=== PATIENT | female | born 1955 | race Caucasian/White ===

== ENCOUNTER → 2019-01-09 | Day surgery (SDC) | payer OTHER ==
[~2019-01-09] MED LIST: ASPIRIN81 M1 PO; ATIVAN1 MG PO; BIOTIN PO; BUPIVACAINE 0.25%/EPI 30ML SDV INJ ONE; CALCIUM PO; CEFAZOLIN SOD 1 GM VIAL ONE; DEXAMETHASONE SOD PHOS INJ 4 MG/ML VIAL ONE; DEXAMETHASONE4 MG PO; EPHEDRINE SULFATE INJ 50 MG/10 ML SYR ONE; FENTANYL CITRATE/PF 100MCG/2 ML INJ ONE; FISH OIL PO; FOLIC ACID1 MG PO; HEPARIN SOD (PORCINE) 5,000 UNIT/ML VIAL ONE; HYDROCODONE/APAP 7.5MG-325MG 1 EA TAB ONE; LIDOCAINE HCL 2% LOCAL INJ 5 ML SDV VIAL INJ ONE; LIPITOR10 MG PO; MECLIZINE HCL12.5 MG PO; MIDAZOLAM HCL 2 MG/2 ML VIAL ONE; MULTIVITAMINS1 EAC8 PO; OMEPRAZOLE40 MG PO; ONDANSETRON HCL INJ 2MG/ML 2ML 2 MG/ML VIAL ONE; PEPCID40 MG PO; PLAVIX75 MG PO; PROPOFOL IV EMULSION 10 MG/ML 20 ML VIAL ONE; REQUIP3 MG PO; SEVOFLURANE INHAL SOLN 250 ML PEN BTL ONE; SODIUM CHLORIDE 0.9% 500ML 500 ML ONE; TEMAZEPAM30 MG PO; VITAMIN B12 PO; VITAMIN D PO; VYTORIN 10-801 EACH PO; ZOFRAN4 MG PO
--- OUTSIDE RECORDS SUMMARY | 2019-01-09 09:59 | XMS REPORT ---
Author Author [facility] Address Unknown Phone Unavailable Care Team Providers [place] Maintenance Technician Name Role Phone Unavailable Unavailable Payers Payer Name Policy Type Policy Number Effective Date Expiration Date Problems This patient has no known problems. Allergies, Adverse Reactions, Alerts This patient has no known allergies or adverse reactions. Medications This patient has no known medications. Results Test Description Test Time Test Comments Text Results Atomic Results Result Comments SCR MAMM BILATERAL ABBIE CAD DIGITAL 2018-09-11 10:14:43 - SCR MAMM BILATERAL ABBIE CAD DIGITALBILATERAL DIGITAL SCREENING MAMMOGRAM 3D/2D WITH CAD: 09/10/2018CLINICAL: Asymptomatic. Digital breast tomosynthesis was performed in addition to routine CC and MLO views. Current mammographic images were evaluated by either a [employer] M-Vu or a [employer] ImageChecker CAD (computer aided detection system). Comparison is made to exam dated 04/20/2009 mammogram - [facility]. The tissue of both breasts is predominantly fatty. No suspicious mass, architectural distortion, malignant type calcification, or lymph node abnormality detected. IMPRESSION: NEGATIVEThere is no mammographic evidence of malignancy. Resume annual screening mammography in one year. Jeromy darling/josué:09/11/2018 10:14:43 Voip Technician: Mary POP, [facility]-FWletter sent: BIRADS 1-2 Normal Mammogram BI-RADS: 1 Negative
[2019-01-09 12:00] LABS: BASOPHILS % 0.4 % (0.0-1.0); EOSINOPHILS % 0.9 % (0.0-6.0); HEMATOCRIT 37.4 % (34.2-44.1); HEMOGLOBIN 11.8 g/dL (12.0-16.0); LYMPHOCYTES # (AUTO) 2.5 (1.0-3.2); LYMPHOCYTES % 53.5 % (18.0-39.1); MEAN CORPUSCULAR HEMOGLOBIN 30.6 pg (28-32); MEAN CORPUSCULAR HGB CONC 31.6 g/dL (31-35); MEAN CORPUSCULAR VOLUME 97.1 fL (81-99); MONOCYTES # (AUTO) 0.4 (0.2-0.8); MONOCYTES % 8.5 % (4.4-11.3); NEUTROPHILS # (AUTO) 1.7 (2.1-6.9); NEUTROPHILS % 36.5 % (38.7-80.0); PLATELET COUNT 228 x10e3/uL (140-360); RED BLOOD COUNT 3.85 x10e6/uL (3.6-5.1); RED CELL DISTRIBUTION WIDTH 14.4 % (11.7-14.4)
[2019-01-09 12:16] LABS: ANION GAP 13.2 mmol/L (8-16); BLOOD UREA NITROGEN 12 mg/dL (7-26); BUN/CREATININE RATIO 16 (6-25); CALCIUM 10.3 mg/dL (8.4-10.2); CARBON DIOXIDE 28 mmol/L (22-29); CHLORIDE 103 mmol/L (98-107); CREATININE, SERUM 0.74 mg/dL (0.57-1.11); EST GLOMERULAR FILTRATION RATE > 60 ML/MIN (60-); GLUCOSE 90 mg/dL (74-118); POTASSIUM 3.2 mmol/L (3.5-5.1); SODIUM 141 mmol/L (136-145)
--- NOTE | 2019-01-09 14:22 | Diagnostic Imaging Report ---
EXAM: CHEST 2 VIEWS, PA and lateral DATE: 01/09/2019 Time stamp on exam: 12:04 PM INDICATION: Preoperative COMPARISON: 11/18/2012 FINDINGS: LINES/TUBES: None LUNGS: Focal opacity in the right lower lobe is indeterminant. This was not seen on the prior x-ray. Nodule, mass or infectious process would be in the differential. Follow-up CT scan of the chest with contrast is suggested. PLEURA: No effusions or pneumothorax. HEART AND MEDIASTINUM: Normal size and contour. BONES AND SOFT TISSUES: No acute findings. IMPRESSION: 1. Focal opacity in the right lower lobe as described above. 2. CT scan of the chest recommended for further evaluation. Signed by: Dr. Julio Cesar Daniels DO on 01/09/2019 2:18 PM
[2019-01-09 15:45] VITALS: BP 123/86
--- NOTE | 2019-01-09 22:19 | Operative Report ---
DATE OF PROCEDURE: 01/09/2019 SURGEON: Cj Irvin MD PREOPERATIVE DIAGNOSES: Lung cancer, needing IV access for chemotherapy. POSTOPERATIVE DIAGNOSES: Lung cancer, needing IV access for chemotherapy. OPERATION PERFORMED: Placement of left subclavian venous access port under C-arm guidance. MANAGER PLANT: MICHEAL Brian. ANESTHESIA: General. COMPLICATIONS: None. ESTIMATED BLOOD LOSS: Minimal. DESCRIPTION OF PROCEDURE: With the patient lying in bed in the supine position under good general anesthesia, the left chest and neck were prepped with Betadine solution and draped in the usual manner. The patient was placed in the Trendelenburg position and a standard left subclavian venipuncture was performed without any difficulty. A guidewire was advanced into central venous position. Using the C-arm, the tip of the guidewire was confirmed to be at the level of the superior vena cava and the left lung was fully expanded. The pocket was then created in the left anterior chest to accept the reservoir and the catheter was threaded to the subclavian position and cut to the appropriate length. The reservoir was anchored to the anterior chest wall with interrupted sutures of 2-0 silk and the reservoir and catheter were fully heparinized. The peel-away sheath was then placed over the guidewire. The guidewire was removed and the catheter was threaded through the peel-away sheath. The peel-away sheath was removed and using the C-arm, the tip of the catheter was found to be at the level of the superior vena cava and the left lung was fully expanded. There was good blood return, and the reservoir was fully heparinized and the wounds were then closed in layers. The subcutaneous tissue was approximated with 3-0 and 4-0 Vicryl. The skin was closed with subcuticular 5-0 Vicryl and benzoin Steri-Strips and dressings were applied. The sponge, lap, and needle count was correct. The patient tolerated the procedure well and returned to the recovery room in stable condition. MD NANNETTE RenteriaR/MODL /[id number]
== END | disposition home or self-care (01) ==
LOC: OR 09:55
PROVIDERS: ATTEND Surgery
DX: C34.90 Malignant neoplasm of unspecified part of unspecified bronchus or lung (principal); I10 Essential (primary) hypertension; I73.9 Peripheral vascular disease, unspecified; K21.9 Gastro-esophageal reflux disease without esophagitis; I45.10 Unspecified right bundle-branch block; F41.9 Anxiety disorder, unspecified; Z91.048 Other nonmedicinal substance allergy status; Z79.02 Long term (current) use of antithrombotics/antiplatelets; Z79.82 Long term (current) use of aspirin; Z87.891 Personal history of nicotine dependence
CPT/HCPCS: 36415; 36561; 71046; 77001; 80048; 85025; 93005; C1751; J0690; J1100; J1644; J2001; J2250; J2405; J2704; J7040

== ENCOUNTER 2022-02-22 11:30 | Inpatient (IN) | payer MEDICARE, BC ==
[2022-02-20 13:28] LABS: BASOPHILS % 0.7 % (0.0-1.0); EOSINOPHILS # (AUTO) 0.1 (0.0-0.4); EOSINOPHILS % 2.2 % (0.0-6.0); HEMATOCRIT 33.8 % (34.2-44.1); HEMOGLOBIN 10.3 g/dL (12.0-16.0); LYMPHOCYTES # (AUTO) 2.2 (1.0-3.2); LYMPHOCYTES % 37.5 % (18.0-39.1); MEAN CORPUSCULAR HEMOGLOBIN 31.2 pg (28-32); MEAN CORPUSCULAR HGB CONC 30.5 g/dL (31-35); MEAN CORPUSCULAR VOLUME 102.4 fL (81-99); MONOCYTES # (AUTO) 0.6 (0.2-0.8); MONOCYTES % 9.4 % (4.4-11.3); NEUTROPHILS % 49.9 % (38.7-80.0); PLATELET COUNT 242 x10e3/uL (140-360); RED CELL DISTRIBUTION WIDTH 14.1 % (11.7-14.4)
[2022-02-20 13:54] LABS: ALBUMIN 3.1 g/dL (3.5-5.0); ALBUMIN/GLOBULIN RATIO 0.9 (0.8-2.0); ANION GAP 13.9 mmol/L (8-16); CALCIUM 8.4 mg/dL (8.4-10.2); CREATININE, SERUM 0.79 mg/dL (0.57-1.11); POTASSIUM 4.9 mmol/L (3.5-5.1)
[~2022-02-22] VITALS: Ht 175.3 cm; Wt 93.0 kg
[~2022-02-22 11:30] MED LIST changes: -BUPIVACAINE 0.25%/EPI 30ML SDV INJ ONE; +BYSTOLIC10 MG PO; -CEFAZOLIN SOD 1 GM VIAL ONE; -DEXAMETHASONE SOD PHOS INJ 4 MG/ML VIAL ONE; -EPHEDRINE SULFATE INJ 50 MG/10 ML SYR ONE; -FENTANYL CITRATE/PF 100MCG/2 ML INJ ONE; +FENTANYL1 EAC3 TD; -HEPARIN SOD (PORCINE) 5,000 UNIT/ML VIAL ONE; +HYDROCODON-ACE1 EAC9 PO; -HYDROCODONE/APAP 7.5MG-325MG 1 EA TAB ONE; +IRON 100 PLUS1 EACH PO; -LIDOCAINE HCL 2% LOCAL INJ 5 ML SDV VIAL INJ ONE; -MIDAZOLAM HCL 2 MG/2 ML VIAL ONE; +MYSOLINE50 MG PO; -ONDANSETRON HCL INJ 2MG/ML 2ML 2 MG/ML VIAL ONE; +PROMETHAZINE HC25 M1 PO; -PROPOFOL IV EMULSION 10 MG/ML 20 ML VIAL ONE; -SEVOFLURANE INHAL SOLN 250 ML PEN BTL ONE; -SODIUM CHLORIDE 0.9% 500ML 500 ML ONE
[2022-02-22] MEDS ORDERED: GLYCOPYRROLATE INJ 0.2 MG/ML VIAL ONE (13:33)
[2022-02-22] MEDS ORDERED: LIDOCAINE HCL 2% LOCAL INJ 5 ML SDV VIAL INJ ONE (13:33)
[2022-02-22] MEDS ORDERED: ONDANSETRON HCL INJ 2MG/ML 2ML 2 MG/ML VIAL ONE ×2 (13:33→15:17)
[2022-02-22] MEDS ORDERED: PROPOFOL IV EMULSION 10 MG/ML 20 ML VIAL ONE (13:33)
[2022-02-22] MEDS ORDERED: DEXAMETHASONE SOD PHOS INJ 4 MG/ML SDV ONE (13:33)
[2022-02-22] MEDS ORDERED: ROCURONIUM BROMIDE 10 MG/ML 5ML VIAL IV ONE (13:33)
[2022-02-22] MEDS ORDERED: SEVOFLURANE INHAL SOLN 250 ML PEN BTL ONE (13:33)
[2022-02-22] MEDS ORDERED: POVIDONE IODINE 0.05% 0.05 % ML PO ONE (13:33)
[2022-02-22] MEDS ORDERED: NEOSTIGMINE 1 MG/ML 10ML VIAL ONE (13:33)
[2022-02-22] MEDS ORDERED: FENTANYL CITRATE/PF 100MCG/2 ML INJ ONE ×2 (13:59→15:38)
[2022-02-22] MEDS ORDERED: Morphine 10mg syringe 10 MG/ML INJ ONE (13:59)
[2022-02-22] MEDS ORDERED: BUPIVACAINE 0.25% 30ML SDV ONE (14:43)
[2022-02-22] MEDS: SODIUM CHLORIDE 0.9% 250ML IRRIG IR SCH ×3 (15:15→23:30)
[2022-02-22] MEDS ORDERED: METOCLOPRAMIDE HCL 10 MG/2ML VIAL ONE (15:17)
[2022-02-22] MEDS ORDERED: PROMETHAZINE HCL (IM) 25 MG/ML VIAL IM ONE (15:27)
[2022-02-22 16:05] VITALS: BP 149/88
[2022-02-22 16:21] VITALS: BP 149/88
[2022-02-22] MEDS ORDERED: TIZANIDINE HCL6 MG PO (17:25)
[2022-02-22] MEDS: Morphine 4mg INJECTION 4 MG/ML INJ IV PRN ×2 (17:29→21:32)
[2022-02-22] MEDS: LACTATED RINGER'S 1,000 ML INJ SCH (17:29)
[2022-02-22 17:44] VITALS: BP 149/88
[2022-02-22 20:50] VITALS: BP 153/92
[2022-02-22 21:00] VITALS: BP 153/92
[2022-02-22] MEDS: ONDANSETRON HCL INJ 2MG/ML 2ML 2 MG/ML VIAL IV PRN (21:28)
[2022-02-22 23:59] VITALS: BP 174/87
[2022-02-23] VITALS (7 sets, daily range): BP systolic 119–177; BP diastolic 67–88
[2022-02-23] MEDS: Morphine 4mg INJECTION 4 MG/ML INJ IV PRN ×2 (01:36→05:35)
[2022-02-23] MEDS: LACTATED RINGER'S 1,000 ML INJ SCH ×4 (01:53→21:40)
[2022-02-23] MEDS: ONDANSETRON HCL INJ 2MG/ML 2ML 2 MG/ML VIAL IV PRN ×2 (03:21→13:24)
[2022-02-23] MEDS: SODIUM CHLORIDE 0.9% 250ML IRRIG IR SCH ×4 (03:24→15:28)
[2022-02-23 05:02] LABS: BASOPHILS % 0.1 % (0.0-1.0); HEMATOCRIT 34.9 % (34.2-44.1); LYMPHOCYTES # (AUTO) 1.5 (1.0-3.2); LYMPHOCYTES % 11.3 % (18.0-39.1); MEAN CORPUSCULAR HEMOGLOBIN 31.3 pg (28-32); MEAN CORPUSCULAR HGB CONC 31.5 g/dL (31-35); MEAN CORPUSCULAR VOLUME 99.1 fL (81-99); MONOCYTES # (AUTO) 1.2 (0.2-0.8); MONOCYTES % 8.6 % (4.4-11.3); NEUTROPHILS # (AUTO) 10.7 (2.1-6.9); NEUTROPHILS % 79.7 % (38.7-80.0); PLATELET COUNT 256 x10e3/uL (140-360); RED BLOOD COUNT 3.52 x10e6/uL (3.6-5.1); RED CELL DISTRIBUTION WIDTH 14.1 % (11.7-14.4)
[2022-02-23 05:18] LABS: ANION GAP 16.5 mmol/L (8-16); CALCIUM 8.4 mg/dL (8.4-10.2); CREATININE, SERUM 0.77 mg/dL (0.57-1.11); POTASSIUM 4.5 mmol/L (3.5-5.1)
[2022-02-23] MEDS ORDERED: HYDRALAZINE HCL 20 MG/ML VIAL IV PRN (09:45)
[2022-02-23] MEDS ORDERED: HYDROMORPHONE 1MG/1ML INJ IV ONE (10:30)
[2022-02-23] MEDS: CYANOCOBALAMIN INJ 1,000 MCG/ML VIAL IM SCH (10:40)
[2022-02-23] MEDS: FENTANYL 100 MCG/HR PATCH TD SCH (10:47)
[2022-02-23] MEDS: HYDROMORPHONE 1MG/1ML INJ IV PRN ×4 (13:24→23:59)
[2022-02-23] MEDS ORDERED: ACETAMINOPHEN 1000 MG/100 ML IV PRN (14:45)
[2022-02-23 15:25] LABS: CLARITY,URINE SL CLOUDY (CLEAR); COLOR,URINE YELLOW (YELLOW); KETONES,URINE NEGATIVE (NEGATIVE); LEUKOCYTE ESTERASE ,URINE SMALL (NEGATIVE); NITRITE,URINE NEGATIVE (NEGATIVE); PROTEIN,URINE DIPSTICK NEGATIVE (NEGATIVE); URINE UROBILINOGEN 0.2 mg/dL (0.2 - 1)
[2022-02-23 15:36] LABS: BACTERIA,URINE RARE /HPF
[2022-02-23] MEDS: ENOXAPARIN SOD INJ 40 MG/0.4 ML SYR SC SCH (16:42)
[2022-02-23] MEDS: PROMETHAZINE 12.5MG/ NACL 0.9% 12.5 MG/50 ML BAG IV PRN ×2 (16:44→20:42)
[2022-02-24] VITALS (8 sets, daily range): BP systolic 90–139; BP diastolic 55–84
[2022-02-24 05:01] LABS: BASOPHILS % 0.4 % (0.0-1.0); EOSINOPHILS # (AUTO) 0.1 (0.0-0.4); EOSINOPHILS % 1.1 % (0.0-6.0); HEMATOCRIT 28.1 % (34.2-44.1); HEMOGLOBIN 8.9 g/dL (12.0-16.0); LYMPHOCYTES # (AUTO) 1.3 (1.0-3.2); LYMPHOCYTES % 18.5 % (18.0-39.1); MEAN CORPUSCULAR HEMOGLOBIN 31.3 pg (28-32); MEAN CORPUSCULAR HGB CONC 31.7 g/dL (31-35); MEAN CORPUSCULAR VOLUME 98.9 fL (81-99); MONOCYTES # (AUTO) 0.8 (0.2-0.8); MONOCYTES % 11.1 % (4.4-11.3); NEUTROPHILS # (AUTO) 4.9 (2.1-6.9); NEUTROPHILS % 68.6 % (38.7-80.0); PLATELET COUNT 165 x10e3/uL (140-360); RED BLOOD COUNT 2.84 x10e6/uL (3.6-5.1); RED CELL DISTRIBUTION WIDTH 14.4 % (11.7-14.4)
[2022-02-24 05:21] LABS: ANION GAP 13.5 mmol/L (8-16); CALCIUM 8.1 mg/dL (8.4-10.2); CREATININE, SERUM 0.96 mg/dL (0.57-1.11); POTASSIUM 4.5 mmol/L (3.5-5.1)
[2022-02-24] MEDS: LACTATED RINGER'S 1,000 ML INJ SCH ×3 (05:30→16:16)
[2022-02-24] MEDS: LIDOCAINE 4% PATCH TP SCH (09:00)
[2022-02-24] MEDS: CYANOCOBALAMIN INJ 1,000 MCG/ML VIAL IM SCH (09:00)
[2022-02-24] MEDS: HYDROMORPHONE 1MG/1ML INJ IV PRN ×3 (09:55→20:26)
[2022-02-24] MEDS ORDERED: HYDROCODONE/APAP 10MG-325MG TAB PO PRN (10:15)
[2022-02-24] MEDS ORDERED: ACETAMINOPHEN 1000 MG/100 ML IV PRN (10:15)
[2022-02-24] MEDS: LORAZEPAM 1 MG TAB PO SCH ×2 (16:00→20:26)
[2022-02-24] MEDS: MECLIZINE HCL 12.5 MG TAB PO PRN (16:20)
[2022-02-24] MEDS: ENOXAPARIN SOD INJ 40 MG/0.4 ML SYR SC SCH (17:00)
[2022-02-25] VITALS (8 sets, daily range): BP systolic 56–143; BP diastolic 39–79
[2022-02-25] MEDS: MECLIZINE HCL 12.5 MG TAB PO PRN ×2 (04:33→12:31)
[2022-02-25] MEDS: LACTATED RINGER'S 1,000 ML INJ SCH (04:54)
[2022-02-25] MEDS: HYDROMORPHONE 1MG/1ML INJ IV PRN ×5 (06:46→21:15)
[2022-02-25] MEDS: LIDOCAINE 4% PATCH TP SCH (08:38)
[2022-02-25] MEDS: LORAZEPAM 1 MG TAB PO SCH ×3 (08:39→21:14)
[2022-02-25] MEDS: CYANOCOBALAMIN INJ 1,000 MCG/ML VIAL IM SCH (08:39)
[2022-02-25] MEDS ORDERED: ACETAMINOPHEN 1000 MG/100 ML IV PRN (10:00)
[2022-02-25] MEDS: IRON SUCROSE 100 MG in SODIUM CHLORIDE 0.9% 100 ML IV SCH (11:30)
[2022-02-25] MEDS: ONDANSETRON HCL INJ 2MG/ML 2ML 2 MG/ML VIAL IV PRN (21:14)
[2022-02-26] VITALS: BP_SYST 100; BP_SYST 117; BP_DIAS 73; BP_DIAS 85
[2022-02-26] MEDS: HYDROMORPHONE 1MG/1ML INJ IV PRN ×3 (02:53→09:45)
[2022-02-26] MEDS: ONDANSETRON HCL INJ 2MG/ML 2ML 2 MG/ML VIAL IV PRN ×2 (02:53→06:24)
[2022-02-26 04:00] VITALS: BP 137/82
[2022-02-26 05:55] LABS: BASOPHILS % 0.6 % (0.0-1.0); EOSINOPHILS # (AUTO) 0.2 (0.0-0.4); EOSINOPHILS % 6.1 % (0.0-6.0); HEMATOCRIT 26.6 % (34.2-44.1); HEMOGLOBIN 8.3 g/dL (12.0-16.0); LYMPHOCYTES # (AUTO) 0.7 (1.0-3.2); MEAN CORPUSCULAR HEMOGLOBIN 31.3 pg (28-32); MEAN CORPUSCULAR HGB CONC 31.2 g/dL (31-35); MEAN CORPUSCULAR VOLUME 100.4 fL (81-99); MONOCYTES # (AUTO) 0.5 (0.2-0.8); MONOCYTES % 14.9 % (4.4-11.3); NEUTROPHILS # (AUTO) 1.8 (2.1-6.9); NEUTROPHILS % 57.1 % (38.7-80.0); PLATELET COUNT 144 x10e3/uL (140-360); RED BLOOD COUNT 2.65 x10e6/uL (3.6-5.1); RED CELL DISTRIBUTION WIDTH 13.9 % (11.7-14.4)
[2022-02-26 08:00] VITALS: BP 137/82
[2022-02-26 08:24] VITALS: BP 139/78
[2022-02-26] MEDS: CYANOCOBALAMIN INJ 1,000 MCG/ML VIAL IM SCH (08:34)
[2022-02-26] MEDS: LORAZEPAM 1 MG TAB PO SCH (08:36)
[2022-02-26] MEDS ORDERED: CLOPIDOGREL BISULFATE 75 MG TAB PO SCH (09:00)
[2022-02-26] MEDS ORDERED: PRIMIDONE 50 MG TAB PO SCH (09:00)
[2022-02-26] MEDS: LIDOCAINE 4% PATCH TP SCH (09:00)
[2022-02-26] MEDS ORDERED: NEBIVOLOL 10 MG TAB PO SCH (09:00)
[2022-02-26] MEDS: IRON SUCROSE 100 MG in SODIUM CHLORIDE 0.9% 100 ML IV SCH (10:00)
[2022-02-26] MEDS: FENTANYL 100 MCG/HR PATCH TD SCH (11:00)
[2022-02-26 12:06] VITALS: BP 121/71
== END 2022-02-26 14:31 | disposition home or self-care (01) | DRG 330 ==
LOC: OR 11:30 → PACU V 15:23 → MED/SURG 16:10 → MED/SURG2 02-25 10:58
PROVIDERS: ADMIT Surgery; ATTEND Surgery
PROC: 0DNA0ZZ Release Jejunum, Open Approach (ICD-10-PCS; 2022-02-22)
PROC: 0DBA0ZZ Excision of Jejunum, Open Approach (ICD-10-PCS; principal; 2022-02-22 12:51)
DX: K91.89 Other postprocedural complications and disorders of digestive system (principal); C34.31 Malignant neoplasm of lower lobe, right bronchus or lung; F11.20 Opioid dependence, uncomplicated; K91.30 Postprocedural intestinal obstruction, unspecified as to partial versus complete; K94.19 Other complications of enterostomy; K95.89 Other complications of other bariatric procedure; I73.9 Peripheral vascular disease, unspecified; Z95.820 Peripheral vascular angioplasty status with implants and grafts; Z98.84 Bariatric surgery status; Z98.0 Intestinal bypass and anastomosis status; Z90.49 Acquired absence of other specified parts of digestive tract; D64.9 Anemia, unspecified; Z20.822 Contact with and (suspected) exposure to COVID-19
CPT/HCPCS: 0223U; 36415; 71046; 80048; 80053; 81001; 85025; 86850; 86900; 87040; 96361; J0360; J0690; J1100; J1170; J1650; J1756; J2001; J2270; J2405; J2543; J2550; J2710; J2765; J3010; J3420; J7050; J7121

== ENCOUNTER 2023-11-04 10:42 | Inpatient (IN) | payer MEDICARE ==
[2023-11-01 09:30] LABS: BASOPHILS % 0.5 % (0.0-1.0); EOSINOPHILS # (AUTO) 0.1 (0.0-0.4); EOSINOPHILS % 1.6 % (0.0-6.0); HEMATOCRIT 33.1 % (34.2-44.1); HEMOGLOBIN 10.4 g/dL (12.0-16.0); LYMPHOCYTES % 24.2 % (18.0-39.1); MEAN CORPUSCULAR HEMOGLOBIN 31.7 pg (28-32); MEAN CORPUSCULAR HGB CONC 31.4 g/dL (31-35); MEAN CORPUSCULAR VOLUME 100.9 fL (81-99); MONOCYTES % 12.3 % (4.4-11.3); NEUTROPHILS # (AUTO) 5.1 (2.1-6.9); NEUTROPHILS % 61.2 % (38.7-80.0); PLATELET COUNT 234 x10e3/uL (140-360); RED BLOOD COUNT 3.28 x10e6/uL (3.6-5.1); RED CELL DISTRIBUTION WIDTH 14.6 % (11.7-14.4); WHITE BLOOD COUNT 8.32 x10e3/uL (4.8-10.8)
[2023-11-01 09:51] LABS: ANION GAP 13.8 mmol/L (8-16); CALCIUM 8.9 mg/dL (8.4-10.2); CREATININE, SERUM 1.06 mg/dL (0.57-1.11); POTASSIUM 3.8 mmol/L (3.5-5.1)
[~2023-11-04] VITALS: Ht 175.3 cm; Wt 104.8 kg
[~2023-11-04 10:42] MED LIST changes: +BACITRACIN ZINC 15 GM OINT ONE; +BUPIVACAINE HCL 0.5% INJ 30 ML VIAL INJ ONE; +CEFDINIR300 MG PO; +GENTAMICIN SULFATE 40 MG/ML 2 ML VIAL ONE; +IOPAMIDOL 610MG/1ML 300 MG/ML VIAL IV ONE; +LIDOCAINE 2% /EPINEPHRINE 20 ML SDV INJ ONE; +METHYLENE BLUE 1% INJ 10 ML VIAL INJ ONE; +TIZANIDINE HCL6 MG PO
[2023-11-04] MEDS: PIPERACILLIN/TAZOBACTAM 3.375 GM VIAL ONE (11:50)
[2023-11-04] MEDS: GENTAMICIN 80MG/NS 100 ML 200 ML IV ONE (11:51)
[2023-11-04] MEDS: LACTATED RINGER'S 1,000 ML ONE ×2 (11:51→15:25)
[2023-11-04] MEDS: CLINDAMYCIN 600MG / 50ML 50 ML IV ONE (12:23)
[2023-11-04] MEDS ORDERED: FENTANYL CITRATE/PF 100MCG/2 ML INJ ONE (12:32)
[2023-11-04] MEDS ORDERED: LIDOCAINE HCL 2% LOCAL INJ 5 ML SDV VIAL INJ ONE (13:34)
[2023-11-04] MEDS ORDERED: ONDANSETRON HCL INJ 2MG/ML 2ML 2 MG/ML VIAL ONE (13:34)
[2023-11-04] MEDS ORDERED: EPHEDRINE SULFATE INJ 50 MG/ML VIAL ONE (13:34)
[2023-11-04] MEDS ORDERED: PROPOFOL IV EMULSION 10 MG/ML 20 ML VIAL ONE (13:34)
[2023-11-04] MEDS ORDERED: SEVOFLURANE INHAL SOLN 250 ML PEN BTL ONE (13:34)
[2023-11-04] MEDS ORDERED: DEXAMETHASONE SOD PHOS INJ 4 MG/ML SDV ONE (13:34)
[2023-11-04] MEDS ORDERED: KETOROLAC TROMETHAMINE 30 MG/ML VIAL ONE (13:34)
[2023-11-04] MEDS: FENTANYL CITRATE/PF 100MCG/2 ML INJ ONE (14:35)
[2023-11-04] MEDS ORDERED: PHENAZOPYRIDINE HCL 100 MG TAB PO PRN (15:45)
[2023-11-04] MEDS ORDERED: ACETAMINOPHEN/CODEINE 300MG - 30MG TAB PO PRN (15:45)
[2023-11-04 16:14] LABS: BASOPHILS % 0.2 % (0.0-1.0); EOSINOPHILS % 0.4 % (0.0-6.0); HEMATOCRIT 31.3 % (34.2-44.1); HEMOGLOBIN 10.1 g/dL (12.0-16.0); LYMPHOCYTES # (AUTO) 0.6 (1.0-3.2); MEAN CORPUSCULAR HEMOGLOBIN 31.7 pg (28-32); MEAN CORPUSCULAR HGB CONC 32.3 g/dL (31-35); MEAN CORPUSCULAR VOLUME 98.1 fL (81-99); MONOCYTES # (AUTO) 0.2 (0.2-0.8); MONOCYTES % 3.9 % (4.4-11.3); NEUTROPHILS # (AUTO) 4.7 (2.1-6.9); NEUTROPHILS % 84.1 % (38.7-80.0); PLATELET COUNT 156 x10e3/uL (140-360); RED BLOOD COUNT 3.19 x10e6/uL (3.6-5.1); RED CELL DISTRIBUTION WIDTH 14.6 % (11.7-14.4); WHITE BLOOD COUNT 5.62 x10e3/uL (4.8-10.8)
[2023-11-04 16:25] VITALS: BP 147/81; PULSE 65; RESP 18; TEMP 97.9; O2SAT 95
[2023-11-04 16:31] LABS: ANION GAP 13.8 mmol/L (8-16); CALCIUM 8.6 mg/dL (8.4-10.2); CREATININE, SERUM 0.8 mg/dL (0.57-1.11); POTASSIUM 3.8 mmol/L (3.5-5.1)
[2023-11-04] MEDS ORDERED: SENNA-S TABLET PO SCH (17:00)
[2023-11-04 17:38] VITALS: BP 162/84; PULSE 62; RESP 16; TEMP 97.5; O2SAT 100
[2023-11-04] MEDS: SODIUM CHLORIDE 0.9% 1000ML 1,000 ML IV SCH (17:53)
[2023-11-04] MEDS ORDERED: ACETAMINOPHEN 1000 MG/100 ML IV PRN (18:00)
[2023-11-04] MEDS ORDERED: NON-FORMULARY MEDICATION (Ondansetron Hcl* (Zofran*) 8 MG) PO SCH (19:00)
[2023-11-04 20:00] VITALS: BP 142/60; PULSE 72; RESP 18; TEMP 97.9; O2SAT 97
[2023-11-04] MEDS: MECLIZINE HCL 12.5 MG TAB PO SCH (20:53)
[2023-11-04] MEDS: LORAZEPAM 1 MG TAB PO SCH (20:54)
[2023-11-04] MEDS: NEBIVOLOL 10 MG TAB PO SCH (20:57)
[2023-11-04] MEDS: ATORVASTATIN 40 MG TAB PO SCH (20:57)
[2023-11-04] MEDS: PRIMIDONE 50 MG TAB PO SCH (20:58)
[2023-11-04] MEDS: PROMETHAZINE HCL 25 MG TAB PO SCH (20:58)
[2023-11-04] MEDS: PANTOPRAZOLE SOD 40 MG TABEC PO SCH (20:58)
[2023-11-04] MEDS: ROPINIROLE HCL 1 MG TAB PO SCH (20:58)
[2023-11-04] MEDS: SENNA-S TABLET PO SCH (20:59)
[2023-11-04] MEDS ORDERED: ROPINIROLE HCL 1 MG TAB PO SCH (21:00)
[2023-11-04] MEDS: TIZANIDINE HCL 4 MG TAB PO SCH (21:00)
[2023-11-04] MEDS ORDERED: TIZANIDINE HCL 4 MG TAB PO SCH (21:00)
[2023-11-04] MEDS: HYDROCODONE/APAP 10MG-325MG TAB PO PRN (21:07)
[2023-11-04] MEDS: TEMAZEPAM 15 MG CAP PO SCH (23:46)
[2023-11-05] VITALS (7 sets, daily range): BP systolic 122–146; BP diastolic 57–76; PULSE 59–65; RESP 17–20; TEMP 97.3–98.4; O2SAT 94–97
[2023-11-05 06:01] LABS: BASOPHILS % 0.1 % (0.0-1.0); EOSINOPHILS % 0.1 % (0.0-6.0); HEMATOCRIT 28.8 % (34.2-44.1); HEMOGLOBIN 9.3 g/dL (12.0-16.0); LYMPHOCYTES # (AUTO) 1.1 (1.0-3.2); LYMPHOCYTES % 15.6 % (18.0-39.1); MEAN CORPUSCULAR HEMOGLOBIN 31.6 pg (28-32); MEAN CORPUSCULAR HGB CONC 32.3 g/dL (31-35); MONOCYTES # (AUTO) 0.8 (0.2-0.8); MONOCYTES % 11.5 % (4.4-11.3); NEUTROPHILS # (AUTO) 5.3 (2.1-6.9); NEUTROPHILS % 72.6 % (38.7-80.0); PLATELET COUNT 166 x10e3/uL (140-360); RED BLOOD COUNT 2.94 x10e6/uL (3.6-5.1); RED CELL DISTRIBUTION WIDTH 14.6 % (11.7-14.4); WHITE BLOOD COUNT 7.33 x10e3/uL (4.8-10.8)
[2023-11-05 06:16] LABS: ANION GAP 12.9 mmol/L (8-16); CALCIUM 8.5 mg/dL (8.4-10.2); CREATININE, SERUM 0.75 mg/dL (0.57-1.11); POTASSIUM 3.9 mmol/L (3.5-5.1)
[2023-11-05] MEDS: ONDANSETRON HCL INJ 2MG/ML 2ML 2 MG/ML VIAL IV PRN (12:45)
[2023-11-05] MEDS: LORAZEPAM 1 MG TAB PO PRN (21:03)
[2023-11-06] VITALS: BP 139/76; PULSE 65; RESP 20; TEMP 98.3; O2SAT 96
[2023-11-06] MEDS: DIPHENHYDRAMINE HCL 25 MG CAP PO PRN (00:24)
[2023-11-06 04:00] VITALS: BP 132/63; PULSE 66; RESP 20; TEMP 97.8; O2SAT 97
[2023-11-06 06:38] LABS: EOSINOPHILS # (AUTO) 0.1 (0.0-0.4); EOSINOPHILS % 1.6 % (0.0-6.0); HEMATOCRIT 30.2 % (34.2-44.1); HEMOGLOBIN 9.5 g/dL (12.0-16.0); LYMPHOCYTES # (AUTO) 1.3 (1.0-3.2); LYMPHOCYTES % 20.1 % (18.0-39.1); MEAN CORPUSCULAR HEMOGLOBIN 31.1 pg (28-32); MEAN CORPUSCULAR HGB CONC 31.5 g/dL (31-35); MONOCYTES # (AUTO) 0.7 (0.2-0.8); MONOCYTES % 11.2 % (4.4-11.3); NEUTROPHILS # (AUTO) 4.3 (2.1-6.9); NEUTROPHILS % 66.6 % (38.7-80.0); PLATELET COUNT 153 x10e3/uL (140-360); RED BLOOD COUNT 3.05 x10e6/uL (3.6-5.1); RED CELL DISTRIBUTION WIDTH 14.5 % (11.7-14.4); WHITE BLOOD COUNT 6.42 x10e3/uL (4.8-10.8)
[2023-11-06 06:48] VITALS: PULSE 74; RESP 22; O2SAT 98
[2023-11-06 07:09] LABS: CALCIUM 8.3 mg/dL (8.4-10.2); CREATININE, SERUM 0.71 mg/dL (0.57-1.11)
[2023-11-06 08:00] VITALS: BP 132/63; PULSE 74; RESP 22; TEMP 97.8; O2SAT 98
[2023-11-06 08:09] VITALS: BP 178/89; PULSE 69; RESP 19; TEMP 98.2; O2SAT 99
[2023-11-06 14:06] VITALS: BP 176/95; PULSE 62
[2023-11-06] MEDS: NIFEDIPINE CR 30 MG TAB PO ONE (14:06)
== END 2023-11-06 17:13 | disposition home or self-care (01) | DRG 748 ==
LOC: OR 10:42 → PACU V 14:34 → MED/SURG 16:25
PROVIDERS: ADMIT Urology; ATTEND Internal Medicine
PROC: 0TSD0ZZ Reposition Urethra, Open Approach (ICD-10-PCS; 2023-11-04)
PROC: BT161ZZ Fluoroscopy of Right Ureter using Low Osmolar Contrast (ICD-10-PCS; 2023-11-04)
PROC: BT171ZZ Fluoroscopy of Left Ureter using Low Osmolar Contrast (ICD-10-PCS; 2023-11-04)
PROC: 0JQC0ZZ Repair Pelvic Region Subcutaneous Tissue and Fascia, Open Approach (ICD-10-PCS; principal; 2023-11-04 12:46)
DX: N81.10 Cystocele, unspecified (principal); D62 Acute posthemorrhagic anemia; I10 Essential (primary) hypertension; E78.5 Hyperlipidemia, unspecified; M51.36 Other intervertebral disc degeneration, lumbar region; N39.498 Other specified urinary incontinence; K21.9 Gastro-esophageal reflux disease without esophagitis; Z79.02 Long term (current) use of antithrombotics/antiplatelets; Z79.82 Long term (current) use of aspirin; Z79.891 Long term (current) use of opiate analgesic; Z95.820 Peripheral vascular angioplasty status with implants and grafts; Z86.73 Personal history of transient ischemic attack (TIA), and cerebral infarction without residual deficits; Z98.84 Bariatric surgery status; Z85.118 Personal history of other malignant neoplasm of bronchus and lung; Z87.440 Personal history of urinary (tract) infections; Z91.048 Other nonmedicinal substance allergy status
CPT/HCPCS: 36415; 71046; 74420; 80048; 82948; 83735; 85025; 93005; 94799; C1758; C1762; J1100; J1580; J1885; J2001; J2405; J2543; J7030

== ENCOUNTER 2024-01-24 22:41 | Inpatient (IN) | payer MEDICARE ==
[~2024-01-24] VITALS: Ht 175.3 cm; Wt 104.8 kg
[~2024-01-24 22:41] MED LIST changes: -BACITRACIN ZINC 15 GM OINT ONE; -BUPIVACAINE HCL 0.5% INJ 30 ML VIAL INJ ONE; -GENTAMICIN SULFATE 40 MG/ML 2 ML VIAL ONE; -IOPAMIDOL 610MG/1ML 300 MG/ML VIAL IV ONE; -LIDOCAINE 2% /EPINEPHRINE 20 ML SDV INJ ONE; -METHYLENE BLUE 1% INJ 10 ML VIAL INJ ONE
[2024-01-24] MEDS: ONDANSETRON HCL INJ 2MG/ML 2ML 2 MG/ML VIAL IV STA (23:41)
[2024-01-24] MEDS: CEFTRIAXONE 2 GM in SODIUM CHLORIDE 0.9% 100 ML IV ONE (23:41)
[2024-01-24] MEDS ORDERED: SODIUM CHLORIDE FLUSH 10 ML SYR INJ PRN (23:45)
[2024-01-25] VITALS (8 sets, daily range): BP systolic 119–146; BP diastolic 68–90; PULSE 65–89; RESP 17–21; TEMP 97.3–100.1; O2SAT 96–99
[2024-01-25] MEDS: ONDANSETRON HCL INJ 2MG/ML 2ML 2 MG/ML VIAL IV PRN (03:56)
[2024-01-25] MEDS: SODIUM CHLORIDE 0.9% 1000ML 1,000 ML IV SCH (03:56)
[2024-01-25] MEDS: POTASSIUM CHLORIDE 10MEQ/100ML 100 ML IV ONE ×2 (03:57)
[2024-01-25] MEDS ORDERED: IOPAMIDOL 370 MG/ML 100 ML INFUS..BTL INJ ONE (04:04)
[2024-01-25] MEDS ORDERED: REGLAN5 MG PO (05:16)
[2024-01-25] MEDS ORDERED: DICYCLOMINE HCL10 MG PO (05:16)
[2024-01-25] MEDS ORDERED: LOMOTIL TABLET1 EACH PO (05:16)
[2024-01-25 05:29] LABS: CLARITY,URINE CLEAR (CLEAR); COLOR,URINE YELLOW (YELLOW); GLUCOSE, URINE NEGATIVE (NEGATIVE); LEUKOCYTE ESTERASE ,URINE TRACE (NEGATIVE); NITRITE,URINE NEGATIVE (NEGATIVE); PH,URINE 5.5 (5 - 7); PROTEIN,URINE DIPSTICK NEGATIVE (NEGATIVE)
[2024-01-25 05:30] LABS: BACTERIA,URINE MODERATE /HPF; BILIRUBIN,URINE NEGATIVE (NEGATIVE); EPITHELIAL CELLS,URINE FEW /LPF; KETONES,URINE NEGATIVE (NEGATIVE); RBC,URINE 0-5 /HPF (0-5); URINE UROBILINOGEN 0.2 mg/dL (0.2 - 1)
[2024-01-25 06:09] LABS: BASOPHILS % 0.2 % (0.0-1.0); HEMATOCRIT 31.9 % (34.2-44.1); LYMPHOCYTES # (AUTO) 0.9 (1.0-3.2); LYMPHOCYTES % 8.8 % (18.0-39.1); MEAN CORPUSCULAR HEMOGLOBIN 29.6 pg (28-32); MEAN CORPUSCULAR HGB CONC 31.3 g/dL (31-35); MEAN CORPUSCULAR VOLUME 94.4 fL (81-99); MONOCYTES # (AUTO) 1.3 (0.2-0.8); MONOCYTES % 12.5 % (4.4-11.3); NEUTROPHILS % 77.9 % (38.7-80.0); PLATELET COUNT 208 x10e3/uL (140-360); RED BLOOD COUNT 3.38 x10e6/uL (3.6-5.1); RED CELL DISTRIBUTION WIDTH 14.1 % (11.7-14.4); WHITE BLOOD COUNT 10.23 x10e3/uL (4.8-10.8)
[2024-01-25 06:30] LABS: ANION GAP 15.5 mmol/L (8-16); CALCIUM 8.6 mg/dL (8.4-10.2); CREATININE, SERUM 0.8 mg/dL (0.57-1.11); POTASSIUM 3.5 mmol/L (3.5-5.1)
[2024-01-25] MEDS: METOCLOPRAMIDE HCL 10 MG TAB PO SCH (12:11)
[2024-01-25] MEDS: DICYCLOMINE HCL 10 MG CAP PO SCH (12:11)
[2024-01-25] MEDS: ACETAMINOPHEN 325 MG TAB PO PRN (12:11)
[2024-01-25] MEDS: HYDROCODONE/APAP 10MG-325MG TAB PO PRN (12:34)
[2024-01-25] MEDS: MECLIZINE HCL 12.5 MG TAB PO SCH (15:28)
[2024-01-25] MEDS: TIZANIDINE HCL 4 MG TAB PO SCH (15:28)
[2024-01-25] MEDS: ENOXAPARIN SOD INJ 40 MG/0.4 ML SYR SC SCH (17:46)
[2024-01-25] MEDS: ATORVASTATIN 40 MG TAB PO SCH (20:46)
[2024-01-25] MEDS: ROPINIROLE HCL 2 MG TAB PO SCH (20:47)
[2024-01-25] MEDS: PANTOPRAZOLE SOD 40 MG TABEC PO SCH (20:47)
[2024-01-25] MEDS: NEBIVOLOL 10 MG TAB PO SCH (20:49)
[2024-01-26] VITALS (8 sets, daily range): BP systolic 99–189; BP diastolic 58–87; PULSE 60–94; RESP 16–19; TEMP 98.1–98.8; O2SAT 98–99
[2024-01-26 05:54] LABS: BASOPHILS % 0.1 % (0.0-1.0); EOSINOPHILS % 0.6 % (0.0-6.0); HEMATOCRIT 33.7 % (34.2-44.1); HEMOGLOBIN 10.2 g/dL (12.0-16.0); LYMPHOCYTES # (AUTO) 1.5 (1.0-3.2); LYMPHOCYTES % 22.4 % (18.0-39.1); MEAN CORPUSCULAR HEMOGLOBIN 29.5 pg (28-32); MEAN CORPUSCULAR HGB CONC 30.3 g/dL (31-35); MEAN CORPUSCULAR VOLUME 97.4 fL (81-99); MONOCYTES # (AUTO) 0.8 (0.2-0.8); MONOCYTES % 11.9 % (4.4-11.3); NEUTROPHILS # (AUTO) 4.4 (2.1-6.9); NEUTROPHILS % 64.7 % (38.7-80.0); PLATELET COUNT 207 x10e3/uL (140-360); RED BLOOD COUNT 3.46 x10e6/uL (3.6-5.1); WHITE BLOOD COUNT 6.83 x10e3/uL (4.8-10.8)
[2024-01-26 06:14] LABS: ANION GAP 15.3 mmol/L (8-16); CALCIUM 8.8 mg/dL (8.4-10.2); CREATININE, SERUM 0.76 mg/dL (0.57-1.11); MAGNESIUM 1.7 MG/DL (1.3-2.1); PHOSPHORUS 2.8 MG/DL (2.3-4.7)
[2024-01-26 06:15] LABS: POTASSIUM 3.3 mmol/L (3.5-5.1)
[2024-01-26 06:35] LABS: THYROID STIMULATING HORMONE 1.808 uIU/mL (0.350-4.940)
[2024-01-26] MEDS: PRIMIDONE 50 MG TAB PO SCH (08:20)
[2024-01-27] VITALS (8 sets, daily range): BP systolic 68–149; BP diastolic 45–92; PULSE 55–89; RESP 17–18; TEMP 97.9–98.5; O2SAT 94–100
[2024-01-27] MEDS: LORAZEPAM 1 MG TAB PO PRN (06:48)
[2024-01-27 07:56] LABS: BASOPHILS % 0.4 % (0.0-1.0); EOSINOPHILS # (AUTO) 0.2 (0.0-0.4); EOSINOPHILS % 1.8 % (0.0-6.0); HEMATOCRIT 27.7 % (34.2-44.1); HEMOGLOBIN 8.7 g/dL (12.0-16.0); LYMPHOCYTES # (AUTO) 2.3 (1.0-3.2); LYMPHOCYTES % 28.3 % (18.0-39.1); MEAN CORPUSCULAR HEMOGLOBIN 30.1 pg (28-32); MEAN CORPUSCULAR HGB CONC 31.4 g/dL (31-35); MEAN CORPUSCULAR VOLUME 95.8 fL (81-99); MONOCYTES # (AUTO) 0.8 (0.2-0.8); MONOCYTES % 9.8 % (4.4-11.3); NEUTROPHILS # (AUTO) 4.9 (2.1-6.9); NEUTROPHILS % 59.2 % (38.7-80.0); PLATELET COUNT 268 x10e3/uL (140-360); RED BLOOD COUNT 2.89 x10e6/uL (3.6-5.1)
[2024-01-27 08:19] LABS: ANION GAP 18.3 mmol/L (8-16); CALCIUM 7.8 mg/dL (8.4-10.2); CREATININE, SERUM 0.79 mg/dL (0.57-1.11)
[2024-01-27 08:33] LABS: POTASSIUM 3.3 mmol/L (3.5-5.1)
[2024-01-27] MEDS: SODIUM CHLORIDE 0.9% 500ML 500 ML IV ONE (16:45)
[2024-01-27] MEDS: SODIUM CHLORIDE 0.9% 250ML 250 ML IV ONE (16:54)
[2024-01-28] VITALS (8 sets, daily range): BP systolic 80–136; BP diastolic 44–91; PULSE 61–96; RESP 18–21; TEMP 98.2–98.8; O2SAT 94–100
[2024-01-28 06:55] LABS: ANION GAP 12.5 mmol/L (8-16); CALCIUM 7.2 mg/dL (8.4-10.2); CREATININE, SERUM 0.7 mg/dL (0.57-1.11); POTASSIUM 3.5 mmol/L (3.5-5.1)
[2024-01-28 07:05] LABS: EOSINOPHILS % 0.4 % (0.0-6.0); LYMPHOCYTES # (AUTO) 1.7 (1.0-3.2); LYMPHOCYTES % 23.8 % (18.0-39.1); MEAN CORPUSCULAR HEMOGLOBIN 28.8 pg (28-32); MONOCYTES # (AUTO) 0.4 (0.2-0.8); MONOCYTES % 6.1 % (4.4-11.3); NEUTROPHILS % 69.1 % (38.7-80.0); PLATELET COUNT 215 x10e3/uL (140-360); RED BLOOD COUNT 2.26 x10e6/uL (3.6-5.1); RED CELL DISTRIBUTION WIDTH 16.2 % (11.7-14.4); WHITE BLOOD COUNT 7.22 x10e3/uL (4.8-10.8)
[2024-01-28 07:19] LABS: HEMOGLOBIN 6.5 g/dL (12.0-16.0); MEAN CORPUSCULAR VOLUME 89.8 fL (81-99)
[2024-01-28 07:20] LABS: HEMATOCRIT 20.3 % (34.2-44.1)
[2024-01-28] MEDS: MIDODRINE HCL 5 MG TABLET PO SCH (12:00)
[2024-01-28] MEDS: SODIUM CHLORIDE 0.9% 250ML 250 ML ONE ×3 (15:22→17:30)
[2024-01-28] MEDS: SODIUM CHLORIDE 0.9% 250ML 250 ML IV ONE (15:23)
[2024-01-28] MEDS: FUROSEMIDE INJ 10 MG/ML 2 ML VIAL IV PRN (15:27)
[2024-01-28] MEDS: Morphine 4mg INJECTION 4 MG/ML INJ IV PRN (21:18)
[2024-01-28] MEDS: PEG (High)/E-LYTE SOLN 4,000 ML BTL PO ONE (23:46)
[2024-01-29] VITALS (8 sets, daily range): BP systolic 108–163; BP diastolic 70–99; PULSE 67–100; RESP 17–18; TEMP 98–98.6; O2SAT 98–100
[2024-01-29 06:51] LABS: EOSINOPHILS # (AUTO) 0.4 (0.0-0.4); EOSINOPHILS % 4.6 % (0.0-6.0); HEMATOCRIT 26.1 % (34.2-44.1); HEMOGLOBIN 8.6 g/dL (12.0-16.0); LYMPHOCYTES # (AUTO) 2.1 (1.0-3.2); LYMPHOCYTES % 26.3 % (18.0-39.1); MEAN CORPUSCULAR HEMOGLOBIN 29.5 pg (28-32); MEAN CORPUSCULAR VOLUME 89.4 fL (81-99); MONOCYTES # (AUTO) 0.6 (0.2-0.8); MONOCYTES % 8.2 % (4.4-11.3); NEUTROPHILS # (AUTO) 4.7 (2.1-6.9); NEUTROPHILS % 60.4 % (38.7-80.0); PLATELET COUNT 205 x10e3/uL (140-360); RED BLOOD COUNT 2.92 x10e6/uL (3.6-5.1); RED CELL DISTRIBUTION WIDTH 15.2 % (11.7-14.4)
[2024-01-29 07:11] LABS: ANION GAP 16.2 mmol/L (8-16); CALCIUM 8.2 mg/dL (8.4-10.2); CREATININE, SERUM 0.69 mg/dL (0.57-1.11)
[2024-01-29 07:16] LABS: POTASSIUM 3.2 mmol/L (3.5-5.1)
[2024-01-29] MEDS: KCL 40MEQ/0.9% SOD CHL 1,000 ML IV SCH (10:37)
[2024-01-29] MEDS ORDERED: FENTANYL CITRATE/PF 100MCG/2 ML INJ ONE (11:42)
[2024-01-29] MEDS: MIDODRINE HCL 5 MG TABLET PO SCH (12:00)
[2024-01-29] MEDS ORDERED: LIDOCAINE HCL 2% LOCAL INJ 5 ML SDV VIAL INJ ONE (13:12)
[2024-01-29] MEDS ORDERED: PROPOFOL IV EMULSION 10 MG/ML 20 ML VIAL ONE (13:12)
[2024-01-29] MEDS: SUCRALFATE 1 GM TAB PO SCH (18:24)
[2024-01-29] MEDS: TEMAZEPAM 15 MG CAP PO PRN (21:01)
[2024-01-30] VITALS (22 sets, daily range): BP systolic 82–164; BP diastolic 48–92; PULSE 56–77; RESP 15–19; TEMP 97–98.7; O2SAT 97–100
[2024-01-30 06:32] LABS: EOSINOPHILS # (AUTO) 0.4 (0.0-0.4); EOSINOPHILS % 6.2 % (0.0-6.0); HEMOGLOBIN 7.5 g/dL (12.0-16.0); LYMPHOCYTES # (AUTO) 1.2 (1.0-3.2); LYMPHOCYTES % 20.1 % (18.0-39.1); MEAN CORPUSCULAR HEMOGLOBIN 29.9 pg (28-32); MEAN CORPUSCULAR HGB CONC 32.6 g/dL (31-35); MEAN CORPUSCULAR VOLUME 91.6 fL (81-99); MONOCYTES # (AUTO) 0.5 (0.2-0.8); MONOCYTES % 7.9 % (4.4-11.3); NEUTROPHILS # (AUTO) 3.8 (2.1-6.9); NEUTROPHILS % 65.5 % (38.7-80.0); PLATELET COUNT 216 x10e3/uL (140-360); RED BLOOD COUNT 2.51 x10e6/uL (3.6-5.1); RED CELL DISTRIBUTION WIDTH 15.1 % (11.7-14.4); WHITE BLOOD COUNT 5.81 x10e3/uL (4.8-10.8)
[2024-01-30 08:24] LABS: ANION GAP 12.5 mmol/L (8-16); CREATININE, SERUM 0.7 mg/dL (0.57-1.11); POTASSIUM 4.5 mmol/L (3.5-5.1)
[2024-01-30 08:38] LABS: MAGNESIUM 1.6 MG/DL (1.3-2.1); PHOSPHORUS 2.7 MG/DL (2.3-4.7)
[2024-01-30] MEDS ORDERED: HYDROCODONE/APAP 10MG-325MG TAB PO PRN (10:30)
[2024-01-30] MEDS ORDERED: FUROSEMIDE INJ 10 MG/ML 2 ML VIAL IV PRN (10:30)
[2024-01-30] MEDS ORDERED: TEMAZEPAM 15 MG CAP PO PRN (10:30)
[2024-01-30] MEDS: IRON SUCROSE 100 MG in SODIUM CHLORIDE 0.9% 100 ML IV SCH (12:02)
[2024-01-30] MEDS: ACETAMINOPHEN 325 MG TAB PO STA (12:03)
[2024-01-30] MEDS: DIPHENHYDRAMINE HCL INJ 50 MG/ML VIAL IV ONE (12:04)
[2024-01-30] MEDS: SODIUM CHLORIDE 0.9% 250ML 250 ML IV ONE (12:05)
[2024-01-30] MEDS: LORAZEPAM 1 MG TAB PO PRN (15:52)
[2024-01-31 01:01] VITALS: BP 104/58; PULSE 66; RESP 18; TEMP 98.7; O2SAT 98
[2024-01-31 04:12] VITALS: BP 127/72; PULSE 67; RESP 18; TEMP 97.8; O2SAT 99
[2024-01-31 08:16] LABS: EOSINOPHILS # (AUTO) 0.4 (0.0-0.4); EOSINOPHILS % 6.8 % (0.0-6.0); HEMATOCRIT 32.6 % (34.2-44.1); HEMOGLOBIN 10.8 g/dL (12.0-16.0); LYMPHOCYTES # (AUTO) 1.5 (1.0-3.2); MEAN CORPUSCULAR HGB CONC 33.1 g/dL (31-35); MEAN CORPUSCULAR VOLUME 90.6 fL (81-99); MONOCYTES # (AUTO) 0.6 (0.2-0.8); MONOCYTES % 10.2 % (4.4-11.3); NEUTROPHILS % 54.6 % (38.7-80.0); PLATELET COUNT 236 x10e3/uL (140-360); WHITE BLOOD COUNT 5.47 x10e3/uL (4.8-10.8)
[2024-01-31 08:21] LABS: ANION GAP 13.8 mmol/L (8-16); CALCIUM 8.4 mg/dL (8.4-10.2); CREATININE, SERUM 0.75 mg/dL (0.57-1.11); POTASSIUM 3.8 mmol/L (3.5-5.1)
[2024-01-31 08:40] VITALS: BP 131/76; PULSE 67; RESP 19; TEMP 97.6; O2SAT 100
[2024-01-31 09:15] VITALS: BP 131/76; PULSE 67; RESP 19; TEMP 97.6; O2SAT 100
== END 2024-01-31 11:45 | disposition home or self-care (01) | DRG 689 ==
LOC: FSED 22:47 → ERHOLD 23:52 → MED/SURG3 01-25 00:53
PROVIDERS: ADMIT Internal Medicine; ATTEND Internal Medicine
PROC: 30233N1 Transfusion of Nonautologous Red Blood Cells into Peripheral Vein, Percutaneous Approach (ICD-10-PCS; principal; 2024-01-27)
PROC: 0DJD8ZZ Inspection of Lower Intestinal Tract, Via Natural or Artificial Opening Endoscopic (ICD-10-PCS; 2024-01-29)
PROC: 0DJ08ZZ Inspection of Upper Intestinal Tract, Via Natural or Artificial Opening Endoscopic (ICD-10-PCS; 2024-01-29 14:02)
DX: N39.0 Urinary tract infection, site not specified (principal); K25.4 Chronic or unspecified gastric ulcer with hemorrhage; R57.8 Other shock; C79.51 Secondary malignant neoplasm of bone; D62 Acute posthemorrhagic anemia; C34.91 Malignant neoplasm of unspecified part of right bronchus or lung; E87.6 Hypokalemia; G25.81 Restless legs syndrome; F41.9 Anxiety disorder, unspecified; I10 Essential (primary) hypertension; K21.9 Gastro-esophageal reflux disease without esophagitis; E86.0 Dehydration; G89.29 Other chronic pain; N31.9 Neuromuscular dysfunction of bladder, unspecified; K57.90 Diverticulosis of intestine, part unspecified, without perforation or abscess without bleeding; N39.498 Other specified urinary incontinence; I95.9 Hypotension, unspecified; Z91.048 Other nonmedicinal substance allergy status; Z98.890 Other specified postprocedural states; Z79.891 Long term (current) use of opiate analgesic; Z98.84 Bariatric surgery status; Z87.891 Personal history of nicotine dependence
CPT/HCPCS: 36415; 36569; 43239; 45378; 71045; 74177; 80048; 81001; 83735; 84100; 84443; 85014; 85025; 86850; 86900; 86920; 87086; 99284; J0692; J0696; J1200; J1650; J1756; J1940; J2001; J2270; J2405; J3480; J7030; J7050; P9016; Q9967

== ENCOUNTER 2024-05-21 21:14 | Emergency (ER) | payer MEDICARE ==
[~2024-05-21] VITALS: Ht 175.3 cm; Wt 103.0 kg
[~2024-05-21 21:14] MED LIST changes: +DICYCLOMINE HCL10 MG PO; +LOMOTIL TABLET1 EACH PO; +REGLAN5 MG PO
[2024-05-21 22:00] VITALS: PULSE 91; RESP 18; TEMP 97.3
[2024-05-21] MEDS ORDERED: CEPHALEXIN500 MG PO (22:55)
[2024-05-21] MEDS: SODIUM CHLORIDE 0.9% 1000ML 1,000 ML IV ONE (23:07)
[2024-05-22 01:05] VITALS: BP 125/82; PULSE 90; RESP 18; TEMP 97.4; O2SAT 94
== END 2024-05-22 01:05 | disposition home or self-care (01) ==
LOC: FSED 21:39
DX: R30.0 Dysuria (principal); N39.0 Urinary tract infection, site not specified; R10.30 Lower abdominal pain, unspecified; K76.0 Fatty (change of) liver, not elsewhere classified; I10 Essential (primary) hypertension; K21.9 Gastro-esophageal reflux disease without esophagitis; F41.9 Anxiety disorder, unspecified; Z11.52 Encounter for screening for COVID-19; Z85.118 Personal history of other malignant neoplasm of bronchus and lung; Z98.84 Bariatric surgery status
CPT/HCPCS: 0223U; 74176; 80053; 81003; 85025; 87400; 99284; J0696; J7030